=== PATIENT | female | born 1965 | race Asian ===

== ENCOUNTER 2018-09-04 08:37 | Outpatient (CLI) | payer BC | END 2018-09-04 21:34 | disposition home or self-care (01) | LOC: RAD 08:37 | DX: Z12.31 Encounter for screening mammogram for malignant neoplasm of breast (principal); M19.90 Unspecified osteoarthritis, unspecified site; Z78.0 Asymptomatic menopausal state ==

== ENCOUNTER 2019-10-01 13:13 | Outpatient (CLI) | payer BC | END 2019-10-01 19:49 | disposition home or self-care (01) | LOC: CT 13:13 | DX: R06.02 Shortness of breath (principal); R06.00 Dyspnea, unspecified ==

== ENCOUNTER 2020-06-09 16:07 | Outpatient (CLI) | payer OTHER | END 2020-06-09 19:08 | disposition home or self-care (01) | LOC: RAD 16:07 | DX: M25.531 Pain in right wrist (principal); S29.019A Strain of muscle and tendon of unspecified wall of thorax, initial encounter ==

== ENCOUNTER 2020-06-14 10:12 | Outpatient (CLI) | payer BC | END 2020-06-14 20:19 | disposition home or self-care (01) | LOC: CT 10:12 → RAD 10:12 | DX: R07.89 Other chest pain (principal) | CPT/HCPCS: 36415; 82565; 84520 ==

== ENCOUNTER 2020-10-21 12:58 | Outpatient (CLI) | payer BC, OTHER ==
[~2020-10-21] VITALS: Ht 167.6 cm; Wt 167.4 kg
[2020-10-21 13:38] LABS: PLATELET COUNT 184 K/uL (152-353)
[2020-10-21 13:50] LABS: POTASSIUM 4.1 mmol/L (3.6-5.2)
== END 2020-10-21 21:34 | disposition home or self-care (01) ==
LOC: INF 12:58
PROVIDERS: ATTEND Family Medicine
DX: Z23 Encounter for immunization (principal); U07.1 COVID-19; I10 Essential (primary) hypertension
CPT/HCPCS: 36591; 80053; 85027; 96365; Q0239

== ENCOUNTER 2021-06-30 11:23 | Outpatient (CLI) | payer BC | END 2021-06-30 20:50 | disposition home or self-care (01) | LOC: RAD 11:23 | PROVIDERS: ATTEND Family Medicine | DX: Z01.818 Encounter for other preprocedural examination (principal) ==

== ENCOUNTER 2021-07-10 14:55 | Outpatient (CLI) | payer BC | END 2021-07-10 19:45 | disposition home or self-care (01) | LOC: US 14:55 | PROVIDERS: ATTEND Nurse Practitioner Family | DX: N95.0 Postmenopausal bleeding (principal) ==

== ENCOUNTER 2021-10-23 12:12 | Outpatient (CLI) | payer BC ==
[2021-10-23 12:19] LABS: POTASSIUM 4.6 mmol/L (3.6-5.2)
[2021-10-23 12:21] LABS: PLATELET COUNT 220 K/uL (152-353)
== END 2021-10-23 19:36 | disposition home or self-care (01) ==
LOC: LAB 12:12
PROVIDERS: ATTEND Student in an Organized Health Care Education/Training Program
DX: M00.9 Pyogenic arthritis, unspecified (principal)
CPT/HCPCS: 80053; 80202; 85027; 85652; 86140

== ENCOUNTER 2021-10-31 10:51 | Outpatient (CLI) | payer BC ==
[2021-10-31 11:30] LABS: PLATELET COUNT 286 K/uL (152-353)
[2021-10-31 11:52] LABS: POTASSIUM 3.6 mmol/L (3.6-5.2)
== END 2021-10-31 19:02 | disposition home or self-care (01) ==
LOC: LAB 10:51
PROVIDERS: ATTEND Student in an Organized Health Care Education/Training Program
DX: M00.9 Pyogenic arthritis, unspecified (principal)
CPT/HCPCS: 80053; 80202; 85027; 85652; 86140

== ENCOUNTER 2021-11-03 13:36 | Outpatient (CLI) | payer BC | END 2021-11-03 19:39 | disposition home or self-care (01) | LOC: LAB 13:36 | PROVIDERS: ATTEND Student in an Organized Health Care Education/Training Program | DX: M00.9 Pyogenic arthritis, unspecified (principal); T84.89XA Other specified complication of internal orthopedic prosthetic devices, implants and grafts, initial encounter; B95.2 Enterococcus as the cause of diseases classified elsewhere | CPT/HCPCS: 80053; 80202 ==

== ENCOUNTER 2021-11-08 13:00 | Outpatient (CLI) | payer BC ==
[2021-11-08 13:32] LABS: PLATELET COUNT 250 K/uL (152-353)
[2021-11-08 13:38] LABS: POTASSIUM 3.7 mmol/L (3.6-5.2)
== END 2021-11-08 18:54 | disposition home or self-care (01) ==
LOC: LAB 13:00
PROVIDERS: ATTEND Student in an Organized Health Care Education/Training Program
DX: M00.9 Pyogenic arthritis, unspecified (principal)
CPT/HCPCS: 80053; 80202; 85027; 85652; 86140

== ENCOUNTER 2021-12-06 12:27 | Outpatient (CLI) | payer BC ==
[2021-12-06 12:44] LABS: PLATELET COUNT 301 K/uL (152-353)
[2021-12-06 13:05] LABS: POTASSIUM 4.3 mmol/L (3.6-5.2)
== END 2021-12-06 19:18 | disposition home or self-care (01) ==
LOC: LABW 12:27
PROVIDERS: ATTEND Nurse Practitioner Family
DX: R50.9 Fever, unspecified (principal); Z79.01 Long term (current) use of anticoagulants
CPT/HCPCS: 36415; 80053; 81000; 85027; 85610

== ENCOUNTER 2021-12-07 10:27 | Outpatient (CLI) | payer BC | END 2021-12-07 19:10 | disposition home or self-care (01) | LOC: MRI 10:27 | PROVIDERS: ATTEND Physician Assistant Medical | DX: M54.16 Radiculopathy, lumbar region (principal) ==

== ENCOUNTER 2021-12-18 15:25 | Outpatient (CLI) | payer BC ==
[2021-12-18 15:47] LABS: PLATELET COUNT 328 K/uL (152-353)
== END 2021-12-18 19:04 | disposition home or self-care (01) ==
LOC: LABW 15:25
PROVIDERS: ATTEND Student in an Organized Health Care Education/Training Program
DX: Z96.652 Presence of left artificial knee joint (principal)
CPT/HCPCS: 36415; 85027; 85652; 86140

== ENCOUNTER 2022-02-23 13:18 | Outpatient (CLI) | payer BC ==
[~2022-02-23] VITALS: Ht 167.6 cm; Wt 151.7 kg
[2022-02-23 13:11] VITALS: BP 96/53; TEMP 98.7
[2022-02-23 16:29] VITALS: BP 101/58; TEMP 98.6
== END 2022-02-23 20:00 | disposition home or self-care (01) ==
LOC: INF 13:18
PROVIDERS: ATTEND Family Medicine
DX: L03.116 Cellulitis of left lower limb (principal)
CPT/HCPCS: 87070; 87077; 87185; 87186; 87205; 96365; J3370

== ENCOUNTER 2022-02-24 07:51 | Outpatient (CLI) | payer BC ==
[~2022-02-24] VITALS: Ht 165.1 cm; Wt 153.3 kg
--- NOTE | 2022-02-24 08:00 | NUR ---
PT HERE VIA WC FOR OUT PT ABX INFUSION. PT ASSISTED TO ROOM ALERT AND OREITNED NO CO AT THIS TIME
== END 2022-02-24 19:41 | disposition home or self-care (01) ==
LOC: INF 07:51
PROVIDERS: ATTEND Nurse Practitioner Family
DX: L03.116 Cellulitis of left lower limb (principal)
CPT/HCPCS: 96365; 96366; J3370

== ENCOUNTER 2022-02-25 08:05 | Outpatient (CLI) | payer BC ==
[2022-02-25 08:20] VITALS: BP 107/58; TEMP 99
--- NOTE | 2022-02-25 08:20 | NUR ---
PT ARRIVED VIA W/C TO INFUSION FOR ANTIBIOTIC THERAPY. PT'S V/S OBTAINED AT THIS TIME. NAD NOTED.
--- NOTE | 2022-02-25 08:30 | NUR ---
LAB IN TO OBTAIN VANCOMYCIN TROUGH PRIOR TO INFUSION.
--- NOTE | 2022-02-25 09:10 | NUR ---
PT'S IV TO RAC NOTED TO BE LEAKING WHEN FLUSHED. 22G STARTED TO RFA X2 STICKS AT THIS TIME. PT TOLERATED WELL.
--- NOTE | 2022-02-25 09:23 | NUR ---
REC'D CRITICAL VANCOMYCIN TROUGH LEVEL OF 58.2 FROM LAB. NOTIFIED KITTY WITH PHARM D. KITTY STATES "WHAT DOSE OF VANCOMYCIN WAS THIS FOR HER?" INFORMED THIS WAS THE 4TH DOSE. KITTY THEN STATES "IF HER LEVEL IS THAT HIGH SHE DOES NOT NEED ANY DOSES TODAY, SHE NEEDS TO COME BACK IN THE AM AND LET THEM REDRAW HER AND CHECK THE LEVEL AGAIN AND WE WILL GO FROM THERE"
--- NOTE | 2022-02-25 09:27 | NUR ---
NOTIFIED DR. AUGUSTE OF PT'S VANCOMYCIN TROUGH AND PHARMACY'S RECOMMENDATION FOR PT TO COME BACK TOMORROW MORNING 02/26/2022 FOR REPEAT VANCOMYCIN TROUGH.
--- NOTE | 2022-02-25 11:02 | NUR ---
PT DISCHARGED VIA W/C AT THIS TIME.
== END 2022-02-25 19:12 | disposition home or self-care (01) ==
LOC: INF 08:05
PROVIDERS: ATTEND Nurse Practitioner Family
DX: L03.116 Cellulitis of left lower limb (principal)
CPT/HCPCS: 36415; 80202

== ENCOUNTER 2022-02-26 08:10 | Outpatient (CLI) | payer BC ==
[2022-02-26 08:22] VITALS: BP 114/61; TEMP 98.8
--- NOTE | 2022-02-26 09:06 | NUR ---
0822 PT ARRIVED TO ROOM 1126 VIA WC ACCOMPANIED BY LAB STAFF. VS OBTAINED. 0846 LAB AT BEDSIDE TO DRAW VANC TROUGH AT THIS TIME.
--- NOTE | 2022-02-26 09:31 | NUR ---
0911 LAB NOTIFIED ME OF VANCOMYCIN TROUGH LEVEL OF 37.7 CRITICAL HIGH FROM RANGE OF 5-18. 13 I NOTIFIED PHARMACY. PHARMACY RECOMMEND NO DOSE TODAY AND PT RETURN TOMORROW FOR VANC TROUGH PRIOR TO INFUSION. [address] AUGUSTE OF VANC LEVEL AND PHARMACY RECOMMENDATION. DR AUGUSTE ACCEPTED RECOMMENDATION TO HOLD VANC INFUSION FOR TODAY THE AM AND PM DOSE AND HAVE PT RETURN TOMORROW 02/27/22 FOR VANC TROUGH PRIOR TO INFUSION. ORDER GIVEN FOR PHARMACY TO DOSE VANCOMYCIN BASED ON VANCOMYCIN TROUGH. 919 EDUCATED PT ON NEW ORDERS AND IMPORTANCE OF KEEPING THE WOUND TO LLE CLEAN AND DRY AND LEAVE PACKING IN PLACE. ONLY CHANGE TOP LAYER OF DRESSING USING GLOVED HANDS TO REDUCE RISK OF SPREADING POTENTIAL INFECTIOUS DRAINAGE AND TO REDUCE RISK OF INTRODUCING NEW INFECTION TO WOUND. PT VERBALIZED UNDERSTANDING OF EDUCATION PROVIDED. 929 PT ASSISTED TO WC AND TO MAIN LOBBY. PT THEN USED HER WALKER TO EXIT THE FACILITY IN NO DISTRESS. TO POV.
--- NOTE | 2022-02-26 09:49 | NUR ---
0943 WOUND CULTURE AND SENSITIVITY REPORT SENT TO DR AUGUSTE.
== END 2022-02-26 18:58 | disposition home or self-care (01) ==
LOC: INF 08:10
PROVIDERS: ATTEND Family Medicine
DX: L03.116 Cellulitis of left lower limb (principal)
CPT/HCPCS: 80202

== ENCOUNTER 2022-02-27 08:15 | Outpatient (CLI) | payer BC ==
[2022-02-27 08:38] LABS: POTASSIUM 5.1 mmol/L (3.6-5.2)
== END 2022-02-27 18:49 | disposition home or self-care (01) ==
LOC: LABW 08:15
PROVIDERS: ATTEND Family Medicine
DX: L03.116 Cellulitis of left lower limb (principal)
CPT/HCPCS: 36415; 80048; 80202

== ENCOUNTER 2022-02-28 08:07 | Outpatient (CLI) | payer BC | END 2022-02-28 18:52 | disposition home or self-care (01) | LOC: INF 08:07 | PROVIDERS: ATTEND Family Medicine | DX: L03.116 Cellulitis of left lower limb (principal) | CPT/HCPCS: 36415; 80202 ==

== ENCOUNTER 2022-03-01 07:58 | Outpatient (CLI) | payer BC | END 2022-03-01 19:04 | disposition home or self-care (01) | LOC: LAB 07:58 → CT 07:58 | PROVIDERS: ATTEND Nurse Practitioner Family | DX: L03.116 Cellulitis of left lower limb (principal) | CPT/HCPCS: 36415; 80202; 82565; 84520 ==

== ENCOUNTER 2022-03-05 08:01 | Outpatient (CLI) | payer BC | END 2022-03-05 18:48 | disposition home or self-care (01) | LOC: INF 08:01 | PROVIDERS: ATTEND Family Medicine | DX: L03.116 Cellulitis of left lower limb (principal) | CPT/HCPCS: 80202 ==

== ENCOUNTER 2022-03-06 08:14 | Outpatient (CLI) | payer BC ==
[2022-03-06 08:46] LABS: PLATELET COUNT 284 K/uL (152-353)
== END 2022-03-06 18:51 | disposition home or self-care (01) ==
LOC: INF 08:14
PROVIDERS: ATTEND Family Medicine
DX: L03.116 Cellulitis of left lower limb (principal)
CPT/HCPCS: 36415; 80048; 80202; 85027

== ENCOUNTER 2022-03-07 08:16 | Outpatient (CLI) | payer BC | END 2022-03-07 19:18 | disposition home or self-care (01) | LOC: INF 08:16 | PROVIDERS: ATTEND Family Medicine | DX: L03.116 Cellulitis of left lower limb (principal) | CPT/HCPCS: 36415; 80202 ==

== ENCOUNTER 2022-03-09 08:01 | Outpatient (CLI) | payer BC ==
[~2022-03-09] VITALS: Ht 167.6 cm; Wt 151.5 kg
[2022-03-09 09:03] VITALS: BP 108/55; TEMP 98.5
--- NOTE | 2022-03-09 09:31 | NUR ---
0903 PT ASSISTED TO ROOM 1126 VIA WC BY NURSING STAFF. VS OBTAINED 4G PIC TO RAC FLUSHED WITH NO COMPLICATIONS. 917 VANCOMYCIN INFUSION STARTED AT THIS TIME WITH NO CMPLICATIONS. 924 PT TOLERATING INFUSION WITH NO ADVERSE REACTIONS SUSPECTED SITE WNL, PT DENIES ANY COMPLAINTS AT THIS TIME.
--- NOTE | 2022-03-09 10:23 | NUR ---
INFUSION COMPLETED AT THIS TIME. PT TOLERATED WITH NO ADVERSE REACTIONS SUSPECTED. 22G PIV TO RAC FLUSHED WITH 10 ML NS CAPPED WITH CURO. VS OBTAINED.
[2022-03-09 10:25] VITALS: BP 110/58; TEMP 98.7
--- NOTE | 2022-03-09 10:42 | NUR ---
PT LEFT FACILITY VIA WC ASSISTED BY STAFF TO POV IN NO DISTRESS.
== END 2022-03-09 23:40 | disposition home or self-care (01) ==
LOC: INF 08:01
PROVIDERS: ATTEND Family Medicine
DX: L03.116 Cellulitis of left lower limb (principal)
CPT/HCPCS: 36415; 80202; 96365; J3370

== ENCOUNTER 2022-03-23 10:04 | Outpatient (CLI) | payer BC ==
[2022-03-23 11:22] LABS: PLATELET COUNT 261 K/uL (152-353)
[2022-03-23 11:55] LABS: POTASSIUM 4.2 mmol/L (3.6-5.2)
== END 2022-03-23 21:55 | disposition home or self-care (01) ==
LOC: LAB 10:04
PROVIDERS: ATTEND Student in an Organized Health Care Education/Training Program
DX: Z48.89 Encounter for other specified surgical aftercare (principal); Z79.2 Long term (current) use of antibiotics; Z96.652 Presence of left artificial knee joint
CPT/HCPCS: 80053; 82550; 85027; 86140

== ENCOUNTER 2022-03-29 09:40 | Outpatient (CLI) | payer BC ==
[2022-03-29 10:08] LABS: PLATELET COUNT 339 K/uL (152-353)
[2022-03-29 10:26] LABS: POTASSIUM 4.1 mmol/L (3.6-5.2)
== END 2022-03-29 19:26 | disposition home or self-care (01) ==
LOC: LAB 09:40
PROVIDERS: ATTEND Student in an Organized Health Care Education/Training Program
DX: Z96.652 Presence of left artificial knee joint (principal); Z79.2 Long term (current) use of antibiotics; Z48.89 Encounter for other specified surgical aftercare
CPT/HCPCS: 80053; 82550; 85027; 86140

== ENCOUNTER 2022-04-02 11:36 | Outpatient (CLI) | payer BC ==
[2022-04-02 11:46] LABS: PLATELET COUNT 320 K/uL (152-353)
[2022-04-02 12:02] LABS: POTASSIUM 4.4 mmol/L (3.6-5.2)
== END 2022-04-02 19:34 | disposition home or self-care (01) ==
LOC: LAB 11:36
PROVIDERS: ATTEND Student in an Organized Health Care Education/Training Program
DX: Z96.652 Presence of left artificial knee joint (principal); Z79.2 Long term (current) use of antibiotics; Z48.89 Encounter for other specified surgical aftercare
CPT/HCPCS: 80053; 82550; 85027; 86140

== ENCOUNTER 2022-04-09 15:49 | Outpatient (CLI) | payer BC ==
[2022-04-09 16:15] LABS: POTASSIUM 4.4 mmol/L (3.6-5.2)
[2022-04-09 16:18] LABS: PLATELET COUNT 249 K/uL (152-353)
== END 2022-04-09 18:58 | disposition home or self-care (01) ==
LOC: LAB 15:49
PROVIDERS: ATTEND Student in an Organized Health Care Education/Training Program
DX: M00.062 Staphylococcal arthritis, left knee (principal); Z96.652 Presence of left artificial knee joint; Z79.2 Long term (current) use of antibiotics; Z48.89 Encounter for other specified surgical aftercare
CPT/HCPCS: 80053; 82550; 85027; 86140

== ENCOUNTER 2022-04-17 15:12 | Outpatient (CLI) | payer BC ==
[2022-04-17 15:38] LABS: PLATELET COUNT 224 K/uL (152-353)
[2022-04-17 16:10] LABS: POTASSIUM 4.2 mmol/L (3.6-5.2)
== END 2022-04-17 19:11 | disposition home or self-care (01) ==
LOC: LAB 15:12
PROVIDERS: ATTEND Student in an Organized Health Care Education/Training Program
DX: Z96.652 Presence of left artificial knee joint (principal); Z79.2 Long term (current) use of antibiotics; Z48.89 Encounter for other specified surgical aftercare
CPT/HCPCS: 80053; 82550; 85027; 86140

== ENCOUNTER 2022-04-22 14:03 | Outpatient (CLI) | payer BC ==
[2022-04-22 15:09] LABS: PLATELET COUNT 209 K/uL (152-353)
[2022-04-22 15:18] LABS: POTASSIUM 4.1 mmol/L (3.6-5.2)
== END 2022-04-22 22:31 | disposition home or self-care (01) ==
LOC: LAB 14:03
PROVIDERS: ATTEND Student in an Organized Health Care Education/Training Program
DX: T84.54XA Infection and inflammatory reaction due to internal left knee prosthesis, initial encounter (principal); M00.062 Staphylococcal arthritis, left knee
CPT/HCPCS: 80053; 82550; 85027; 86140

== ENCOUNTER 2022-11-05 11:41 | Outpatient (CLI) | payer BC | END 2022-11-05 21:37 | disposition home or self-care (01) | LOC: RAD 11:41 | PROVIDERS: ATTEND Nurse Practitioner Primary Care | DX: Z01.89 Encounter for other specified special examinations (principal) | CPT/HCPCS: 93005 ==

== ENCOUNTER 2022-11-19 12:40 | Outpatient (CLI) | payer BC ==
[2022-11-19 12:57] LABS: PLATELET COUNT 298 K/uL (152-353)
[2022-11-19 13:24] LABS: POTASSIUM 4.3 mmol/L (3.6-5.2)
== END 2022-11-19 20:34 | disposition home or self-care (01) ==
LOC: LAB 12:40
PROVIDERS: ATTEND Orthopaedic Surgery Sports Medicine
DX: T84.54XD Infection and inflammatory reaction due to internal left knee prosthesis, subsequent encounter (principal)
CPT/HCPCS: 80053; 80202; 85027; 86140

== ENCOUNTER 2022-11-22 13:08 | Outpatient (CLI) | payer BC | END 2022-11-22 19:07 | disposition home or self-care (01) | LOC: LAB 13:08 | PROVIDERS: ATTEND Orthopaedic Surgery Sports Medicine | DX: T84.54XD Infection and inflammatory reaction due to internal left knee prosthesis, subsequent encounter (principal) | CPT/HCPCS: 80048; 80202 ==

== ENCOUNTER 2022-11-22 13:30 | Emergency (ER) | payer BC ==
[~2022-11-22] VITALS: Ht 167.6 cm; Wt 158.8 kg
[2022-11-22 13:40] VITALS: TEMP 97.3
[2022-11-22 15:04] VITALS: BP 140/56
== END 2022-11-22 15:42 | disposition home or self-care (01) ==
LOC: ED 13:30
DX: Z96.652 Presence of left artificial knee joint (principal); Z48.03 Encounter for change or removal of drains; Z48.01 Encounter for change or removal of surgical wound dressing
CPT/HCPCS: 96372; 99283; J2405

== ENCOUNTER 2022-11-29 11:39 | Outpatient (CLI) | payer BC ==
[2022-11-29 11:55] LABS: PLATELET COUNT 207 K/uL (152-353)
[2022-11-29 12:03] LABS: POTASSIUM 3.8 mmol/L (3.6-5.2)
== END 2022-11-29 20:50 | disposition home or self-care (01) ==
LOC: LAB 11:39
PROVIDERS: ATTEND Internal Medicine
DX: T84.54XD Infection and inflammatory reaction due to internal left knee prosthesis, subsequent encounter (principal)
CPT/HCPCS: 80053; 82550; 85027; 86140

== ENCOUNTER 2022-12-03 11:35 | Outpatient (CLI) | payer BC ==
[2022-12-03 12:04] LABS: PLATELET COUNT 214 K/uL (152-353)
[2022-12-03 12:31] LABS: POTASSIUM 3.9 mmol/L (3.6-5.2)
== END 2022-12-03 21:19 | disposition home or self-care (01) ==
LOC: LAB 11:35
PROVIDERS: ATTEND Internal Medicine
DX: T84.54XD Infection and inflammatory reaction due to internal left knee prosthesis, subsequent encounter (principal)
CPT/HCPCS: 80053; 82550; 85027; 86140

== ENCOUNTER 2022-12-06 12:42 | Outpatient (CLI) | payer BC | END 2022-12-06 17:00 | disposition home or self-care (01) | LOC: LAB 12:42 | PROVIDERS: ATTEND Internal Medicine | DX: T84.54XD Infection and inflammatory reaction due to internal left knee prosthesis, subsequent encounter (principal) | CPT/HCPCS: 82550 ==

== ENCOUNTER 2022-12-10 12:02 | Outpatient (CLI) | payer BC ==
[2022-12-10 12:17] LABS: PLATELET COUNT 244 K/uL (152-353)
[2022-12-10 12:25] LABS: POTASSIUM 4.2 mmol/L (3.6-5.2)
== END 2022-12-10 19:00 | disposition home or self-care (01) ==
LOC: LAB 12:02
PROVIDERS: ATTEND Internal Medicine
DX: T84.54XD Infection and inflammatory reaction due to internal left knee prosthesis, subsequent encounter (principal)
CPT/HCPCS: 80053; 82550; 85027; 86140

== ENCOUNTER 2022-12-13 13:35 | Outpatient (CLI) | payer BC | END 2022-12-13 17:00 | disposition home or self-care (01) | LOC: LAB 13:35 | PROVIDERS: ATTEND Internal Medicine | DX: T84.54XD Infection and inflammatory reaction due to internal left knee prosthesis, subsequent encounter (principal) | CPT/HCPCS: 82550 ==

== ENCOUNTER → 2022-12-17 | Outpatient (CLI) | payer BC ==
[2022-12-17 12:29] LABS: PLATELET COUNT 265 K/uL (152-353)
[2022-12-17 12:52] LABS: POTASSIUM 3.9 mmol/L (3.6-5.2)
== END ==
LOC: LAB 12:02
PROVIDERS: ATTEND Internal Medicine
DX: T84.54XD Infection and inflammatory reaction due to internal left knee prosthesis, subsequent encounter (principal)
CPT/HCPCS: 80053; 82550; 85027; 86140

== ENCOUNTER 2022-12-20 11:43 | Outpatient (CLI) | payer BC | END 2022-12-20 19:06 | disposition home or self-care (01) | LOC: LAB 11:43 | PROVIDERS: ATTEND Internal Medicine | DX: T84.54XD Infection and inflammatory reaction due to internal left knee prosthesis, subsequent encounter (principal) | CPT/HCPCS: 82550 ==

== ENCOUNTER 2022-12-21 08:50 | Outpatient (CLI) | payer BC ==
[2022-12-21 09:51] LABS: PLATELET COUNT 236 K/uL (152-353)
[2022-12-21 10:34] LABS: POTASSIUM 4.2 mmol/L (3.6-5.2)
== END 2022-12-21 19:19 | disposition home or self-care (01) ==
LOC: US 08:50
PROVIDERS: ATTEND Student in an Organized Health Care Education/Training Program
DX: N28.89 Other specified disorders of kidney and ureter (principal); D63.1 Anemia in chronic kidney disease; E79.0 Hyperuricemia without signs of inflammatory arthritis and tophaceous disease; R80.8 Other proteinuria; N18.9 Chronic kidney disease, unspecified; I12.9 Hypertensive chronic kidney disease with stage 1 through stage 4 chronic kidney disease, or unspecified chronic kidney disease; R94.6 Abnormal results of thyroid function studies; E11.65 Type 2 diabetes mellitus with hyperglycemia; E55.9 Vitamin D deficiency, unspecified; E78.2 Mixed hyperlipidemia; D50.8 Other iron deficiency anemias; Z79.899 Other long term (current) drug therapy
CPT/HCPCS: 36415; 80053; 80074; 81000; 82306; 82550; 82570; 82607; 82728; 82746; 83036; 83540; 83550; 83735; 83970; 84100; 84156; 84165; 84550; 85027; 86037; 86160; 86592; 87535; G0432

== ENCOUNTER 2022-12-24 19:52 | Outpatient (CLI) | payer BC ==
[2022-12-24 22:32] LABS: PLATELET COUNT 165 K/uL (152-353)
[2022-12-25 05:44] LABS: POTASSIUM 4.4 mmol/L (3.6-5.2)
== END 2022-12-24 20:42 | disposition home or self-care (01) ==
LOC: LAB 19:52
PROVIDERS: ATTEND Internal Medicine
DX: T84.54XD Infection and inflammatory reaction due to internal left knee prosthesis, subsequent encounter (principal)
CPT/HCPCS: 80053; 85027; 86140

== ENCOUNTER 2022-12-25 09:44 | Emergency (ER) | payer BC ==
[~2022-12-25] VITALS: Ht 167.6 cm; Wt 149.7 kg
[2022-12-25 09:44] VITALS: TEMP 98.1
[2022-12-25 10:21] LABS: PLATELET COUNT 171 K/uL (152-353)
[2022-12-25 10:56] LABS: POTASSIUM 4.8 mmol/L (3.6-5.2)
[2022-12-25 12:46] VITALS: BP 132/90
== END 2022-12-25 12:54 | disposition short-term general hospital (02) ==
LOC: ED 09:44
PROVIDERS: Emergency Medicine
DX: N17.9 Acute kidney failure, unspecified (principal); M62.82 Rhabdomyolysis; N39.0 Urinary tract infection, site not specified
CPT/HCPCS: 36415; 80053; 81000; 82550; 84484; 85027; 87077; 87086; 87088; 87186; 93005; 96360; 96361; 99284

== ENCOUNTER 2023-01-17 16:32 | Outpatient (CLI) | payer BC ==
[2023-01-17 17:14] LABS: POTASSIUM 3.8 mmol/L (3.6-5.2)
== END 2023-01-17 19:43 | disposition home or self-care (01) ==
LOC: US 16:32
PROVIDERS: ATTEND Nurse Practitioner Family
DX: R60.0 Localized edema (principal)
CPT/HCPCS: 36415; 80053; 83880; 85379

== ENCOUNTER 2023-04-09 13:46 | Outpatient (CLI) | payer BC ==
[2023-04-09 14:47] LABS: PLATELET COUNT 241 K/uL (152-353)
[2023-04-09 14:49] LABS: POTASSIUM 3.4 mmol/L (3.6-5.2)
== END 2023-04-09 20:53 | disposition home or self-care (01) ==
LOC: RAD 13:46
PROVIDERS: ATTEND Nurse Practitioner Family
DX: Z01.818 Encounter for other preprocedural examination (principal)
CPT/HCPCS: 36415; 80053; 85027; 85610; 93005

== ENCOUNTER 2023-05-30 14:21 | Outpatient (CLI) | payer BC | END 2023-05-30 20:01 | disposition home or self-care (01) | LOC: MRI 14:21 | PROVIDERS: ATTEND Nurse Practitioner Family | DX: M54.16 Radiculopathy, lumbar region (principal) ==